=== PATIENT | male | born 1945 ===

== ENCOUNTER 2017-08-03 11:16 | Emergency (ER) | payer MEDICARE, OTHER ==
[2017-08-03 11:16] VITALS: BMI 31.3
[2017-08-03 11:31] VITALS: BP 152/76; PULSE 94; RESP 18; TEMP 98; O2SAT 98
[2017-08-03] MEDS ORDERED: Lidocaine 5% Patch TD STA (12:53)
[2017-08-03] MEDS ORDERED: Lidocaine 5% Patch TD ONE (13:18)
--- NOTE | 2017-08-03 13:19 | ED PDOC ---
HPI: General Adult Time Seen by Provider: 08/03/17 12:11 Chief Complaint (Nursing): Back Pain Chief Complaint (Provider): Back pain History Per: Patient History/Exam Limitations: no limitations Onset/Duration Of Symptoms: Persistent Have you had recent travel within the past 21 days to any of the following countries: [place], [place], [place] or [place]?: No Current Symptoms Are (Timing): Still Present Additional Complaint(s): 71yo male presents to ED today for evaluation of right sided lower back pain, radiating to his right leg for the past 3-4 weeks. Patient states he was evaluated at 2x for these symptoms, had XR and CT scans performed and was informed he has arthritis. Patient was instructed to follow up with an orthopedist but due to insurance issues, he has not been able to. He has been taking Tylenol for the pain with minimal relief. He presents to ED today to see if he can be evaluated by an orthopedist. Patient denies any trauma , injury, abdominal pain, nausea, vomiting, bowel or bladder incontinence, hematuria, numbness or tingling. No other complaints. Past Medical History Reviewed: Historical Data, Nursing Documentation, Vital Signs Vital Signs: Last Vital Signs Temp 98 F 08/03/17 11:27 Pulse 94 H 08/03/17 11:27 Resp 18 08/03/17 11:27 BP 152/76 H 08/03/17 11:27 Pulse Ox 98 08/03/17 13:38 - Medical History PMH: Asthma, Bronchitis, Colonic Polyps, Diabetes, Diverticulitis, Hepatitis, HTN, Hypercholesterolemia, Pancreatitis Denies: Gall Bladder Disease - Surgical History Surgical History: No Surg Hx - Family History Family History: States: Unknown Family Hx - Social History Current smoker - smoking cessation education provided: No Ex-Smoker (has not smoked in the last 12 months): No Alcohol: None Drugs: Denies - Immunization History Hx Tetanus Toxoid Vaccination: No Hx Influenza Vaccination: Yes Hx Pneumococcal Vaccination: No - Home Medications Home Medications: Ambulatory Orders Medication Instructions Recorded Nateglinide [Starlix] 120 mg PO TID #0 tab 09/08/15 Albuterol HFA [Ventolin HFA 90 0.09 mg IH Q4 PRN #1 puff 07/11/17 mcg/actuation (8 g)] Docusate [Colace] 100 mg PO TID #60 cap 07/11/17 Losartan [Cozaar] 100 mg PO DAILY #30 tab 07/11/17 MetFORMIN [glucoPHAGE] 1,000 mg PO BID #60 tab 07/11/17 Simvastatin 20 mg PO HS #30 tablet 07/11/17 Tamsulosin [Flomax] 0.4 mg PO DAILY #30 cap 07/11/17 amLODIPine [Norvasc] 5 mg PO DAILY #30 tab 07/11/17 hydroCHLOROthiazide [Microzide] 12.5 mg PO DAILY #30 cap 07/11/17 traMADol [Ultram] 50 mg PO TID PRN #15 tab 07/19/17 Lidocaine 5% [Lidoderm] 1 patch TP DAILY #30 patch 07/21/17 oxyCODONE/Acetaminophen [Percocet 1 tab PO QID PRN #20 tab 07/21/17 5/325 mg Tab] Metaxalone [Skelaxin] 800 mg PO TID #10 tablet 08/03/17 - Allergies Allergies/Adverse Reactions: Allergies Allergy/AdvReac Type Severity Reaction Status Date / Time No Known Allergies Allergy Verified 07/21/17 13:10 Review of Systems ROS Statement: Except As Marked, All Systems Reviewed And Found Negative Gastrointestinal: Negative for: Nausea, Vomiting, Abdominal Pain Genitourinary Male: Negative for: Incontinence, Hematuria Musculoskeletal: Positive for: Back Pain, Leg Pain Neurological: Negative for: Weakness, Numbness Physical Exam - Reviewed Nursing Documentation Reviewed: Yes Vital Signs Reviewed: Yes - Physical Exam Appears: Positive for: Well, Non-toxic, No Acute Distress Head Exam: Positive for: ATRAUMATIC, NORMAL INSPECTION, NORMOCEPHALIC Skin: Positive for: Warm, Dry Neck: Positive for: Supple Cardiovascular/Chest: Positive for: Regular Rate, Rhythm Respiratory: Positive for: Normal Breath Sounds Gastrointestinal/Abdominal: Positive for: Normal Exam, Soft. Negative for: Tenderness Back: Positive for: Other (right paralumbar tenderness. negative straight leg raise bilaterally). Negative for: L CVA Tenderness, R CVA Tenderness, Vertebral Tenderness Extremity: Positive for: Normal ROM. Negative for: Tenderness Neurologic/Psych: Positive for: Alert, Oriented. Negative for: Motor/Sensory Deficits - ECG O2 Sat by Pulse Oximetry: 98 (RA) Pulse Ox Interpretation: Normal Medical Decision Making Medical Decision Making: Impression: Back pain Plan: -- Tylenol 975 mg PO -- Flexeril 10mg PO -- Lidocaine patch XR's and CT reports from prior visits reviewed. CT Abdomen/Pelvis IMPRESSION: 1. No evidence of left hydronephrosis, renal, or definite ureteral calculus. 2. Cirrhosis with sequela of portal hypertension. 3. Remainder of findings as above. Lumbar Spine XR IMPRESSION: Degenerative disc disease at L5-S1. Grade 1 anterolisthesis at L4-5. Time: 1305 Patient reports feeling much better. Patient given referral for orthopedist follow up. Scribe Attestation: Documented by So Mendez acting as a scribe for BETHANY Armstrong Provider Attestation: All medical record entries made by the Scribe were at my direction and personally dictated by me. I have reviewed the chart and agree that the record accurately reflects my personal performance of the history, physical exam, medical decision making, and the department course for this patient. I have also personally directed, reviewed, and agree with the discharge instructions and disposition. Disposition - Clinical Impression Clinical Impression: Sciatica - Patient ED Disposition Is Patient to be Admitted: No - Disposition Referrals: [facility] [Outside] [facility] [Outside] Disposition: Routine/Home Disposition Time: 13:00 Condition: STABLE Prescriptions: Metaxalone [Skelaxin] 800 mg PO TID #10 tablet Instructions: Sciatica (ED) Forms: 24h00 (Nepali) Print Language: [id number]
== END 2017-08-03 14:10 | disposition home or self-care (01) ==
LOC: H.ER 11:16
DX: M54.31 Sciatica, right side (principal); E11.9 Type 2 diabetes mellitus without complications; Z79.84 Long term (current) use of oral hypoglycemic drugs